=== PATIENT | male | born 1960 | race African-American/Black ===

== ENCOUNTER 2019-03-16 10:14 | Emergency (ER) | payer OTHER ==
[~2019-03-16] VITALS: Ht 185.4 cm; Wt 99.8 kg
[2019-03-16 10:22] VITALS: Ht 185.4 cm; Wt 99.8 kg
[2019-03-16 12:17] VITALS: BP 135/74
== END 2019-03-16 12:17 | disposition home or self-care (01) ==
LOC: ED 10:14
DX: R06.03 Acute respiratory distress (principal); J98.01 Acute bronchospasm; E11.9 Type 2 diabetes mellitus without complications
CPT/HCPCS: 87804; J7512; J7613; Q0092